=== PATIENT | male | born 1965 | race Caucasian/White ===

== ENCOUNTER 2021-10-28 05:56 | Day surgery (SDC) | payer OTHER ==
[2021-10-28] MEDS ORDERED: Lactated Ringers 1,000 ML IV SCH (06:30)
[2021-10-28] MEDS ORDERED: DIPRIVAN 200 MG/20 ML IV ONE ×2 (07:04→07:11)
[2021-10-28] MEDS ORDERED: Xylocaine-Mpf 2% 5 Ml Vial ONE (07:04)
[2021-10-28 08:09] VITALS: BP 137/93; PULSE 73; O2SAT 99
--- NOTE | 2021-10-28 09:08 | OP ---
SURGERY DATE/TIME: 10/28/2021 0703 PREOPERATIVE DIAGNOSIS: Screening exam. POSTOPERATIVE DIAGNOSIS: Normal colon. PROCEDURE: Colonoscopy. SURGEON: Dr. Rosendo Lara. ANESTHESIA: MAC. Medications given by anesthesia department. HISTORY: The patient is a 56-year-old white male patient presenting now for screening colonoscopy. The patient was appraised of the risks of the procedure including the risk of perforation, phlebitis, untoward reaction to medication, bleeding and missed lesions. The patient verbalized his understanding and desired to have the procedure performed. DESCRIPTION OF PROCEDURE: The patient was given the medications by the anesthesia department. He had continuous pulse oximetry, ECG monitoring, intermittent blood pressure monitoring during the examination. He was placed in the left lateral decubitus position. A digital rectal examination was performed and revealed normal anal sphincter tone, no masses and normal prostate. The flexible Olympus pediatric colonoscope was used to intubate the rectum. A view of the colon was developed sequentially to the cecum. Upon insertion and withdrawal, including a retroflex view in the rectum was noted no mucosal abnormalities. The scope was removed from the patient who tolerated the procedure well and was sent back to OP recovery in good condition. The prep was noted to be fair to good.
== END 2021-10-28 08:10 | disposition home or self-care (01) ==
LOC: SDC 05:56
PROVIDERS: ATTEND Family Medicine
DX: Z12.11 Encounter for screening for malignant neoplasm of colon (principal)
CPT/HCPCS: J2704

== ENCOUNTER 2023-04-12 16:05 | Emergency (ER) | payer OTHER ==
--- NOTE | 2023-04-12 16:07 | ERPHSYRPT ---
- History of Present Illness Time Seen by Provider: 04/12/23 16:06 Historian: patient Exam Limitations: no limitations Physician History: This is a 57-year-old white male patient of Dr. Lara who has a history of hypertension. Dr. Lara saw the patient today. Patient was having right sided rib and chest pain that has been worsening over the last few days and was worse this morning. Patient states it is painful to take a deep breath in. He states the pain radiates from the right chest/ribs to the sternum. His symptoms are worse when he is lying flat. 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 Patient has not had a fever. He does have a cough. He denies leg or calf pain. Timing/Duration: day(s) (Present for the last few days), worse (Symptoms worse today) Quality: sharpness, stabbing Location: other (Right lower chest and ribs. Radiates to the sternum) Severity of Pain-Max: mild (To moderate) Severity of Pain-Current: mild (To moderate) Modifying Factors: Improves With: coughing, lying down (Worsens), change in position Associated Symptoms: cough (Mild) Prior Chest Pain/Cardiac Workup: no prior chest pain Nitro Today/Relief: no nitro taken today Aspirin Treatment Today: 81 mg x 4, provided by ED Allergies/Adverse Reactions: No Known Drug Allergies Allergy (Verified 10/28/21 06:09) Home Medications: Metoprolol Tartrate 50 mg [Lopressor 50 MG] 50 mg PO DAILY 10/19/21 [History] Mv-Min/Folic/Vit K/Lycop/Coq10 [Daily Multivitamin Capsule] 1 each PO DAILY 10/28/21 [History] Benazepril HCl 10 mg PO QAM 04/12/23 [History] Travel Risk - Coronavirus Screening Are you exhibiting any of the following symptoms?: Yes Symptoms: Cough: New Onset, Shortness of Breath Close contact with a COVID-19 positive Pt in past 14-21 Days: No - Review of Systems Constitutional: No Symptoms Eyes: No Symptoms Ears, Nose, & Throat: No Symptoms Respiratory: Cough, Dyspnea Cardiac: Chest Pain (Right lower chest to sternum) Abdominal/Gastrointestinal: No Symptoms Genitourinary Symptoms: No Symptoms Musculoskeletal: No Symptoms Skin: No Symptoms Neurological: No Symptoms Psychological: No Symptoms Endocrine: No Symptoms Hematologic/Lymphatic: No Symptoms Immunological/Allergic: No Symptoms All Other Systems: Reviewed and Negative - Past Medical History Pertinent Past Medical History: Yes Neurological History: No Pertinent History ENT History: No Pertinent History Cardiac History: Hypertension Respiratory History: No Pertinent History Endocrine Medical History: No Pertinent History Musculoskeletal History: No Pertinent History GI Medical History: No Pertinent History History: No Pertinent History Psycho-Social History: No Pertinent History Male Reproductive Disorders: No Pertinent History - Past Surgical History Past Surgical History: No Neuro Surgical History: No Pertinent History Cardiac: No Pertinent History Respiratory: No Pertinent History Gastrointestinal: No Pertinent History Genitourinary: No Pertinent History Musculoskeletal: No Pertinent History Male Surgical History: No Pertinent History - Social History Smoking Status: Never smoker Exposure to second hand smoke: No Drug Use: none - Nursing Vital Signs Nursing Vital Signs: Initial Vital Signs Temperature 98.1 F 04/12/23 16:06 Pulse Rate 86 04/12/23 16:06 Respiratory Rate 16 04/12/23 16:06 O2 Sat by Pulse Oximetry 99 04/12/23 16:06 Pain Scale Pain Intensity 3 - Physical Exam General Appearance: no apparent distress, alert Eye Exam: PERRL/EOMI, eyes nml inspection Ears, Nose, Throat Exam: normal ENT inspection, moist mucous membranes Neck Exam: normal inspection, non-tender, supple, full range of motion Respiratory Exam: normal breath sounds, chest tenderness (Right chest), lungs c lear, airway intact, No respiratory distress Cardiovascular Exam: regular rate/rhythm, normal heart sounds, normal peripheral pulses Gastrointestinal/Abdomen Exam: soft, normal bowel sounds, No tenderness Rectal Exam: not done Back Exam: normal inspection, normal range of motion, No CVA tenderness, No vertebral tenderness Extremity Exam: normal inspection, normal range of motion, pelvis stable Neurologic Exam: alert, oriented x 3, cooperative, rag inspector II-XII nml as tested, normal mood/affect, nml cerebellar function, nml station & gait, sensation nml Skin Exam: normal color, warm, dry Lymphatic Exam: No adenopathy SpO2 Interpretation: normal O2 Delivery: Room Air - Course Nursing assessment & vital signs reviewed: Yes EKG Interpreted by Me: RATE (73), Sinus Rhythm, Left Tiro Deviation, NORMAL INTERVALS, NORMAL QRS (Borderline), NORMAL ST-T, Other (No acute ischemic changes on today's twelve-lead EKG.) Ordered Tests: Active Orders 24 hr Category Date Time Status Acquisition Marketing Coordinator STAT Care 04/12/23 16:32 Active EKG-ER Only STAT Care 04/12/23 16:31 Active IV Insertion STAT Care 04/12/23 16:31 Active Pulse Oximetry (ED) STAT Care 04/12/23 16:31 Active CHEST 1 VIEW (PORTABLE) Stat Exams 04/12/23 16:32 Completed CHEST WITH CONTRAST [CT] Stat Exams 04/12/23 17:14 Taken CBC W DIFF Stat Lab 04/12/23 16:55 Completed CMP Stat Lab 04/12/23 16:55 Completed D-DIMER QUANTITATIVE Stat Lab 04/12/23 16:55 Completed TROPONIN Q4H Lab 04/12/23 16:55 Completed TROPONIN Q4H Lab 04/12/23 20:45 Ordered TROPONIN Q4H Lab 04/13/23 00:45 Ordered Medication Summary Discontinued Medications Generic Name Dose Route Start Last Admin Trade Name Freq PRN Reason Stop Dose Admin Aspirin 324 mg 04/12/23 16:31 04/12/23 17:11 Aspirin 81 Mg Tab.Chew PO 04/12/23 16:32 324 mg STAT ONE Administration Aspirin Confirm 04/12/23 17:09 Aspirin 81 Mg Tab.Chew Administered 04/12/23 17:10 Dose 324 mg .ROUTE .STK-MED ONE Sodium Chloride 500 mls @ 500 mls/hr 04/12/23 17:22 04/12/23 18:22 Sodium Chloride 0.9% 500 Ml IV 04/12/23 18:21 500 mls/hr .Q1H ONE Administration Sodium Chloride Confirm 04/12/23 18:17 Sodium Chloride 0.9% 500 Ml Administered 04/12/23 18:18 Dose 500 mls @ ud IV .STK-MED ONE Lab/Rad Data: Laboratory Result Diagrams 04/12/23 16:55 04/12/23 16:55 Laboratory Results 04/12/23 04/12/23 04/12/23 Range/Units 16:55 16:55 16:55 WBC (4.0-10.5) x10^3/uL RBC (4.1-5.6) x10^6/uL Hgb (12.5-18.0) g/dL Hct (42-50) % MCV (78-100) fL MCH (26-32) pg MCHC (32-36) g/dL RDW (11.5-14.0) % Plt Count (150-450) x10^3/uL MPV (7.5-11.0) fL Gran % (36.0-66.0) % Immature Gran % (Auto) (0.00-0.4) % Nucleat RBC Rel Count (0.00-0.1) % Eos # (Auto) (0-0.5) x10^3/uL Immature Gran # (Auto) (0.00-0.03) x10^3u/L Absolute Lymphs (auto) (1.0-4.6) x10^3/uL Absolute Monos (auto) (0.0-1.3) x10^3/uL Absolute Nucleated RBC (0.00-0.01) x10^3u/L Lymphocytes % (24.0-44.0) % Monocytes % (0.0-12.0) % Eosinophils % (0.00-5.0) % Basophils % (0.0-0.4) % Absolute Granulocytes (1.4-6.9) x10^3/uL Basophils # (0-0.4) x10^3/uL D-Dimer 16.47 H* (0.0-0.50) mg/L Sodium 135 L (137-145) mmol/L Potassium 4.1 (3.5-5.1) mmol/L Chloride 99 (98-107) mmol/L Carbon Dioxide 28 (22-30) mmol/L Anion Gap 12.0 (5-15) MEQ/L BUN 14 (9-20) mg/dL Creatinine 1.03 (0.66-1.25) mg/dL Estimated GFR 85.3 ML/MIN Glucose 105 (74-106) mg/dL Calcium 9.4 (8.4-10.2) mg/dL Total Bilirubin 0.70 (0.2-1.3) mg/dL AST 36 (17-59) U/L ALT 34 (0-50) U/L Alkaline Phosphatase 66 (38-126) U/L Troponin I < 0.012 (0.000-0.034) ng/mL Serum Total Protein 7.5 (6.3-8.2) g/dL Albumin 2.7 L (3.5-5.0) g/dL 04/12/23 Range/Units 16:55 WBC 6.5 (4.0-10.5) x10^3/uL RBC 4.00 L (4.1-5.6) x10^6/uL Hgb 12.3 L (12.5-18.0) g/dL Hct 36.4 L (42-50) % MCV 91.0 (78-100) fL MCH 30.8 (26-32) pg MCHC 33.8 (32-36) g/dL RDW 11.8 (11.5-14.0) % Plt Count 263 (150-450) x10^3/uL MPV 9.5 (7.5-11.0) fL Gran % 61.1 (36.0-66.0) % Immature Gran % (Auto) 0.2 (0.00-0.4) % Nucleat RBC Rel Count 0.0 (0.00-0.1) % Eos # (Auto) 0.29 (0-0.5) x10^3/uL Immature Gran # (Auto) 0.01 (0.00-0.03) x10^3u/L Absolute Lymphs (auto) 1.53 (1.0-4.6) x10^3/uL Absolute Monos (auto) 0.62 (0.0-1.3) x10^3/uL Absolute Nucleated RBC 0.00 (0.00-0.01) x10^3u/L Lymphocytes % 23.7 L (24.0-44.0) % Monocytes % 9.6 (0.0-12.0) % Eosinophils % 4.5 (0.00-5.0) % Basophils % 0.9 (0.0-0.4) % Absolute Granulocytes 3.94 (1.4-6.9) x10^3/uL Basophils # 0.06 (0-0.4) x10^3/uL D-Dimer (0.0-0.50) mg/L Sodium (137-145) mmol/L Potassium (3.5-5.1) mmol/L Chloride (98-107) mmol/L Carbon Dioxide (22-30) mmol/L Anion Gap (5-15) MEQ/L BUN (9-20) mg/dL Creatinine (0.66-1.25) mg/dL Estimated GFR ML/MIN Glucose (74-106) mg/dL Calcium (8.4-10.2) mg/dL Total Bilirubin (0.2-1.3) mg/dL AST (17-59) U/L ALT (0-50) U/L Alkaline Phosphatase (38-126) U/L Troponin I (0.000-0.034) ng/mL Serum Total Protein (6.3-8.2) g/dL Albumin (3.5-5.0) g/dL - Progress Progress: improved, re-examined Air Movement: good Progress Note: 04/12/23 17:20 This patient's medical issue is 1 of moderate complexity. Level complex in the workup performed is based on review of the patient's past medical history, review the patient's medication list, review of the patient's drug allergy list, history of present illness and physical findings on examination. Workup includes placement of intravenous line, twelve-lead EKG, troponin level, D-dimer level, CBC, CMP, chest x-ray. Dr. Lara is also requesting a CT scan of the chest with contrast which we will perform pending the results of the patient's renal function. Blood Culture(s) Obtained: Yes Antibiotics given: Yes Counseled pt/family regarding: lab results, diagnosis, rad results Medical Desision Making - Independent Historian Additional History obtained from: Spouse - Diagnostic Testing Diagnostic test were ordered, analyzed, and reviewed by me: Yes Radiological Interpretation: Reviewed by me, Teleradiologist Report - Risk of complications The pt has a mod risk of morbidity or mortality based on: Need for prescription drug management - Departure Departure Disposition: Home Clinical Impression: Right lower lobe pneumonia Condition: Stable Critical Care Time: No Referrals: OG LARA [Primary Care Provider] - Follow up/PCP as directed Additional Instructions: Take your medication as prescribed. Follow-up with your primary care provider for further evaluation management. Prescriptions: Prednisone 10 mg [Deltasone 10 mg] 10 mg PO TID #12 tablet Azithromycin 250 mg [Zithromax 250 MG TABLET] 250 mg PO ZPACK #6 tablet
[2023-04-12 16:14] VITALS: TEMP 98.1
[2023-04-12] MEDS ORDERED: BABY ASPIRIN 81 MG CHEW PO ONE (16:31)
--- NOTE | 2023-04-12 16:46 | XRAY ---
Indication: Right chest pain. Comparison: None Portable chest demonstrates mild right base infiltrate versus atelectasis with right hemidiaphragm elevation. Remaining heart and lungs unremarkable. Bony thorax intact with osteopenia and mild degenerative changes.
[2023-04-12 17:01] LABS: Absolute Neutrophil Ct (ANC) 3.94 x10^3/uL (1.4-6.9); BASOPHIL % 0.9 % (0.0-0.4); Basophil (Absolute #) 0.06 x10^3/uL (0-0.4); Eosinophil % 4.5 % (0.00-5.0); Eosinophil (Absolute #) 0.29 x10^3/uL (0-0.5); Hematocrit 36.4 % (42-50); Hemoglobin 12.3 g/dL (12.5-18.0); IMMATURE GRAN # 0.01 x10^3u/L (0.00-0.03); IMMATURE GRAN % 0.2 % (0.00-0.4); Lymphocyte (Absolute #) 1.53 x10^3/uL (1.0-4.6); Lymphocytes % 23.7 % (24.0-44.0); Mean Corpuscular Hemoglobin 30.8 pg (26-32); Mean Corpuscular Hgb Concent. 33.8 g/dL (32-36); Mean Platelet Volume 9.5 fL (7.5-11.0); Monocyte (Absolute #) 0.62 x10^3/uL (0.0-1.3); Monocytes % 9.6 % (0.0-12.0); Neutrophil % 61.1 % (36.0-66.0); Platelet Count 263 x10^3/uL (150-450); Red Cell Distribution Width 11.8 % (11.5-14.0); White Blood Count 6.5 x10^3/uL (4.0-10.5)
[2023-04-12] MEDS ORDERED: BABY ASPIRIN 81 MG CHEW ONE (17:09)
[2023-04-12 17:13] LABS: BILIRUBIN,TOTAL 0.7 mg/dL (0.2-1.3); Calcium 9.4 mg/dL (8.4-10.2); Creatinine 1 1.03 mg/dL (0.66-1.25); EST GLOMERULAR FILTRATION RATE 85.3 ML/MIN; Potassium 4.1 mmol/L (3.5-5.1); Total Protein 7.5 g/dL (6.3-8.2)
[2023-04-12] MEDS ORDERED: Sodium Chloride 0.9% 500 ML 500 ML IV ONE ×2 (17:22→18:17)
[2023-04-12 18:23] VITALS: O2SAT 98
[2023-04-12] MEDS ORDERED: solu-MEDROL 125 MG, Sterile H2O 10 ml 2 ML IV ONE ×2 (18:57)
[2023-04-12] MEDS ORDERED: ROCEPHIN 1 Gm-D5w 50 ml Bag** 1 G/50 ML IVPB IV STA (18:57)
[2023-04-12] MEDS ORDERED: solu-MEDROL ONE (19:19)
[2023-04-12] MEDS ORDERED: ROCEPHIN 1 Gm-D5w 50 ml Bag** 1 G/50 ML IVPB IV ONE (19:19)
[2023-04-12] MEDS ORDERED: Sterile H2O 10 ml IJ ONE (19:20)
[2023-04-12 20:08] VITALS: BP 125/89; PULSE 64; RESP 18
--- NOTE | 2023-04-13 08:38 | XRAY ---
Indication: Right chest pain. Short of breath. Multiple contiguous axial images obtained through the chest using 80 cc Isovue 370 contrast and PE protocol. Comparison: None Good opacification of the pulmonary arteries to include the lobar and segmental branches. No pulmonary embolus. Heart is not enlarged. Aorta is normal in course and caliber. No pathologic mediastinal/hilar lymphadenopathy. Lungs demonstrates posterior right lower lobe consolidating/nonconsolidating airspace disease with tiny effusion. Left lung clear. Bony thorax intact with minimal degenerative changes throughout the spine. Limited upper abdomen including adrenal glands are unremarkable. Impression: 1. Negative pulmonary embolus. 2. Right lower lobe airspace disease with tiny effusion corresponding to same day chest radiograph finding.
[2023-04-17 21:23] LABS: ALBUMIN 4.3 g/dL (3.5-5.0)
== END 2023-04-12 20:10 | disposition home or self-care (01) ==
LOC: ED 16:05
DX: J18.9 Pneumonia, unspecified organism (principal); R07.9 Chest pain, unspecified; R07.81 Pleurodynia; R05.9 Cough, unspecified; I10 Essential (primary) hypertension; Z79.52 Long term (current) use of systemic steroids; Z79.899 Other long term (current) drug therapy
CPT/HCPCS: 36000; 36415; 71045; 71260; 80053; 84484; 85025; 85379; 93005; 93041; 94760; 96365; 96374; 99284; J0696; J2930; A9270-GY

== ENCOUNTER 2023-11-18 13:15 | Emergency (ER) | payer OTHER ==
[2023-11-18 13:25] VITALS: TEMP 97.1
[2023-11-18 13:49] LABS: Absolute Neutrophil Ct (ANC) 7.53 x10^3/uL (1.78-5.38); BASOPHIL % 0.8 % (0.2-1.2); Basophil (Absolute #) 0.08 x10^3/uL (0.01-0.08); Eosinophil % 2.9 % (0.8-7.0); Eosinophil (Absolute #) 0.29 x10^3/uL (0.04-0.54); Hematocrit 37.6 % (40.1-51.0); Hemoglobin 12.9 g/dL (13.7-17.5); IMMATURE GRAN # 0.03 x10^3u/L (0.001-0.031); IMMATURE GRAN % 0.3 % (0.001-0.429); Lymphocyte (Absolute #) 1.15 x10^3/uL (1.32-3.57); Lymphocytes % 11.7 % (21.8-53.1); Mean Cell Volume 89.3 fL (79.0-92.2); Mean Corpuscular Hemoglobin 30.6 pg (25.7-32.2); Mean Corpuscular Hgb Concent. 34.3 g/dL (32.3-36.5); Mean Platelet Volume 9.9 fL (9.4-12.4); Monocyte (Absolute #) 0.79 x10^3/uL (0.30-0.82); Neutrophil % 76.3 % (34.0-67.9); Platelet Count 202 x10^3/uL (163-337); Red Blood Count 4.21 x10^6/uL (4.63-6.08); White Blood Count 9.9 x10^3/uL (4.23-9.07)
--- NOTE | 2023-11-18 13:53 | ERPHSYRPT ---
- History of Present Illness Time Seen by Provider: 11/18/23 13:17 Source: patient Exam Limitations: no limitations Patient Subjective Stated Complaint: Pt states "My right calf is killing me. It has been hurting worse and worse for the past 5 days." Triage Nursing Assessment: Pt presented alert and oriented X 3, skin pwd. Pt right calf slightly larger than the left, pt calf hurts when right foot is pushed on. Physician History: Patient is here with right calf pain. Patient states that he has got 8 out of 10 right calf pain for 5 days. 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 Patient is most concerned about a right leg DVT today. He has no chest pain, shortness of breath, nausea, vomiting. No fever or chills. He has never had a DVT before, no other history of clotting issues. He has no family history of sudden cardiac . Allergies/Adverse Reactions: No Known Drug Allergies Allergy (Verified 10/28/21 06:09) Home Medications: Metoprolol Tartrate 50 mg [Lopressor 50 MG] 50 mg PO DAILY 10/19/21 [History] Benazepril HCl 10 mg PO QAM 04/12/23 [History] Hx Tetanus, Diphtheria Vaccination/Date Given: No Hx Influenza Vaccination/Date Given: No Hx Pneumococcal Vaccination/Date Given: No Immunizations Up to Date: No Travel Risk - International Travel Have you traveled outside of the country in past 3 weeks: No - Emerging Infectious Disease Are you exhibiting symptoms associated with any current EIDs: No - Past Medical History Pertinent Past Medical History: Yes Neurological History: No Pertinent History ENT History: No Pertinent History Cardiac History: Hypertension Respiratory History: No Pertinent History Endocrine Medical History: No Pertinent History Musculoskeletal History: No Pertinent History GI Medical History: No Pertinent History History: No Pertinent History Psycho-Social History: No Pertinent History Male Reproductive Disorders: No Pertinent History - Past Surgical History Past Surgical History: No Neuro Surgical History: No Pertinent History Cardiac: No Pertinent History Respiratory: No Pertinent History Gastrointestinal: No Pertinent History Genitourinary: No Pertinent History Musculoskeletal: No Pertinent History Male Surgical History: No Pertinent History - Social History Smoking Status: Never smoker Exposure to second hand smoke: No Drug Use: none - Social Determinants of Health Will the patient participate in the screening: Declined to provide - Nursing Vital Signs Nursing Vital Signs: Initial Vital Signs Temperature 97.1 F 11/18/23 13:19 Pulse Rate 84 11/18/23 13:19 Respiratory Rate 18 11/18/23 13:19 Blood Pressure 149/95 11/18/23 13:19 O2 Sat by Pulse Oximetry 98 11/18/23 13:19 Pain Scale Pain Intensity 4 - Physical Exam SpO2: 98 Comments: 11/18/23 13:51 Review of Systems Constitutional: Negative for fever. HENT: Negative for congestion. Respiratory: Negative for shortness of breath. Cardiovascular: Negative for chest pain. Gastrointestinal: Negative for abdominal pain. Genitourinary: Negative for dysuria. Musculoskeletal: Negative for back pain. Right calf pain Skin: Negative for rash. Neurological: Negative for headaches. Psychiatric/Behavioral: Negative for behavioral problems. All other systems reviewed and are negative. Physical Exam Vitals signs and nursing note reviewed. Constitutional: Appearance: Patient is well-developed. HENT: Head: Normocephalic and atraumatic. Eyes: Conjunctiva/sclera: Conjunctivae normal. Neck: Musculoskeletal: Normal range of motion. Trachea: No tracheal deviation. Cardiovascular: Rate and Rhythm: Normal rate. Pulmonary: Effort: Pulmonary effort is normal. No respiratory distress. Abdominal: Palpations: Abdomen is soft. Musculoskeletal: General: Right calf tenderness to palpation. No signs of trauma or other deformity. Some mild redness, is enlarged compared to left calf, sensation intact, 2+ capillary refill, 2 point tactile discrimination intact. 5 out of 5 strength. Full range of motion without pain. Compartments are soft, nontender. Overlying skin shows no tenting, bruising, ecchymosis. Skin: General: Skin is warm and dry. Neurological/ Psychiatric: Mental Status: Mental status, behavior, interaction with environment is appropriate for patient's age and condition - Course Nursing assessment & vital signs reviewed: Yes EKG Interpreted by Me: Sinus Rhythm Ordered Tests: Active Orders 24 hr Category Date Time Status EKG-ER Only STAT Care 11/18/23 13:44 Active IV Insertion STAT Care 11/18/23 13:44 Active Ultrasound Unilateral Extremities [VENOUS UNILAT/ Exams 11/18/23 13:38 Taken LIMITED EXTREMIT] [US] Stat CBC W DIFF Stat Lab 11/18/23 13:10 Completed CMP Stat Lab 11/18/23 13:10 Completed Lab/Rad Data: Laboratory Result Diagrams 11/18/23 13:10 11/18/23 13:10 Laboratory Results 11/18/23 11/18/23 Range/Units 13:10 13:10 WBC 9.9 H (4.23-9.07) x10^3/uL RBC 4.21 L (4.63-6.08) x10^6/uL Hgb 12.9 L (13.7-17.5) g/dL Hct 37.6 L (40.1-51.0) % MCV 89.3 (79.0-92.2) fL MCH 30.6 (25.7-32.2) pg MCHC 34.3 (32.3-36.5) g/dL RDW 12.0 (11.6-14.4) % Plt Count 202 (163-337) x10^3/uL MPV 9.9 (9.4-12.4) fL Gran % 76.3 H (34.0-67.9) % Immature Gran % (Auto) 0.3 (0.001-0.429) % Nucleat RBC Rel Count 0.0 (0.00-0.2) % Eos # (Auto) 0.29 (0.04-0.54) x10^3/uL Immature Gran # (Auto) 0.03 (0.001-0.031) x10^3u/L Absolute Lymphs (auto) 1.15 L (1.32-3.57) x10^3/uL Absolute Monos (auto) 0.79 (0.30-0.82) x10^3/uL Absolute Nucleated RBC 0.00 (0.00-0.012) x10^3u/L Lymphocytes % 11.7 L (21.8-53.1) % Monocytes % 8.0 (5.3-12.2) % Eosinophils % 2.9 (0.8-7.0) % Basophils % 0.8 (0.2-1.2) % Absolute Granulocytes 7.53 H (1.78-5.38) x10^3/uL Basophils # 0.08 (0.01-0.08) x10^3/uL Sodium 136 (135-145) mmol/L Potassium 3.8 (3.5-5.1) mmol/L Chloride 102 (98-107) mmol/L Carbon Dioxide 25 (22-30) mmol/L Anion Gap 13.4 (5-15) MEQ/L BUN 18 (9-20) mg/dL Creatinine 1.38 H (0.66-1.25) mg/dL Estimated GFR 59.6 ML/MIN Glucose 109 H (74-106) mg/dL Calcium 9.7 (8.4-10.2) mg/dL Total Bilirubin 1.00 (0.2-1.3) mg/dL AST 39 (17-59) U/L ALT 45 (0-50) U/L Alkaline Phosphatase 87 (38-126) U/L Serum Total Protein 7.2 (6.3-8.2) g/dL Albumin 4.2 (3.5-5.0) g/dL - Progress Progress: improved Progress Note: 11/18/23 13:52 Patient here with right calf pain, concern for DVT. Will order an ultrasound, basic labs, EKG. Lower suspicion for pulmonary embolism today this is given that he has no chest pain, shortness of breath, no tachycardia, decreasing O2 sats. Patient is 99% on room air. 11/18/23 15:44 Ultrasound read per the ophthalmic technician apprentice as follows: Superficial thrombosis proximal GSV nonoccluding DVT: Occluding mid distant SFV, popliteal peritoneal signs, PTV's Given the above read patient will need to be started on Eliquis and have close follow-up with PCP. Patient has good perfusion, no obvious need for acute thrombectomy today I do believe he should improve on Eliquis. Will need reexam in 24 hours with PCP. We did write patient for a 30-day Eliquis supply and provided him with a coupon to ensure affordability. Again he has no chest pain, shortness of breath, signs of a PE today. I did go over risk factors, PE symptoms with the family and patient. They state their understanding will follow-up with her PCP as described. Counseled pt/family regarding: lab results, diagnosis, need for follow-up, rad results - Departure Departure Disposition: Home Clinical Impression: Right leg DVT Condition: Stable Critical Care Time: No Referrals: OG CANDELARIO [Primary Care Provider] - Follow up/PCP as directed Prescriptions: Apixaban [Eliquis] 5 mg PO BID 30 Days #74 cap
[2023-11-18 14:04] LABS: ALBUMIN 4.2 g/dL (3.5-5.0); ANION GAP 13.4 MEQ/L (5-15); Calcium 9.7 mg/dL (8.4-10.2); Creatinine 1 1.38 mg/dL (0.66-1.25); EST GLOMERULAR FILTRATION RATE 59.6 ML/MIN; Potassium 3.8 mmol/L (3.5-5.1); Total Protein 7.2 g/dL (6.3-8.2)
[2023-11-18 16:05] VITALS: BP 126/84; PULSE 71; RESP 17; O2SAT 100
--- NOTE | 2023-11-18 19:17 | XRAY ---
Indication: Pain and swelling. DVT. Two-dimensional sonogram and color Doppler imaging major venous vessels right leg performed. Comparison: October 15, 2017 Occluding thrombus seen throughout the mid to distal femoral, popliteal, peroneal, and posterior tibial veins. Nonoccluding thrombi seen in the proximal greater saphenous vein. Impression: Occluding DVT as detailed. Nonoccluding thrombi in greater saphenous vein. Comment: Preliminary report was given.
== END 2023-11-18 16:09 | disposition home or self-care (01) ==
LOC: ED 13:15
DX: I82.411 Acute embolism and thrombosis of right femoral vein (principal); I82.431 Acute embolism and thrombosis of right popliteal vein; I82.451 Acute embolism and thrombosis of right peroneal vein; I82.441 Acute embolism and thrombosis of right tibial vein; I82.4Z1 Acute embolism and thrombosis of unspecified deep veins of right distal lower extremity; M79.661 Pain in right lower leg; I10 Essential (primary) hypertension; Z79.01 Long term (current) use of anticoagulants; Z79.899 Other long term (current) drug therapy
CPT/HCPCS: 36000; 36415; 80053; 85025; 93005; 93971; 99284